=== PATIENT | female | born 2005 | race Caucasian/White ===

== ENCOUNTER 2024-04-25 20:34 | Emergency (ER) | payer OTHER, SELFPAY ==
[2024-04-25 20:38] VITALS: BP 117/66; PULSE 82; TEMP 37; O2SAT 100; BMI 26.6
--- NOTE | 2024-04-25 20:49 | ED_ITS ---
HPI - URI/Sore Throat General Chief Complaint: Upper Respiratory Infection Stated Complaint: SWOLLEN THROAT, SEVERE PAIN Time Seen by Provider: 04/25/24 20:44 Source: patient Limitations: no limitations History of Present Illness HPI Narrative: patient presents complaining of a sore throat. States she was seen earlier today at [facility]. states she was given dose of medication and then discharged. States her throat pain is worse. No fever. Not short of breath. No abdominal pain or nausea Related Data Allergies Allergy/AdvReac Type Severity Reaction Status Date / Time Penicillins AdvReac Mild Rash Verified 04/25/24 20:48 Review of Systems ROS Status of ROS 10 or more systems reviewed and unremark able except as noted in history and below Exam Constitutional Vital Signs, click to edit/add: Last Vital Signs Temp 98.6 F 04/25/24 20:38 Pulse 82 04/25/24 20:38 Resp 16 04/25/24 20:38 BP 117/66 04/25/24 20:38 Pulse Ox 100 04/25/24 20:58 O2 Del Method Room Air 04/25/24 20:58 Common normals: no apparent distress, average body habitus, oriented x3, no limitations, healthy appearing, alert and well nourished [facility] Common normals: normocephalic and head/scalp atraumatic Other: left tonsil inflamed. mild swelling. no exudate. neck supple. tender left anterior shotty nodes. neg stridor Eye Common normals: PERRL and EOMs intact bilaterally Respiratory Common normals: normal respiratory effort, no retractions, no use of accessory muscles and clear to auscultation bilaterally Cardio Common normals: regular rate, regular rhythm, S1 normal heart sound and S2 normal heart sound GI Common normals: Normal to inspection, nondistended, normoactive bowel sounds present, soft to palpation and non-tender Extremity Common normals: normal to inspection and full ROM Neuro Common normals: oriented x3, CN's II-XII intact bilaterally, moves all extremities and no focal motor deficits Psych Appearance: grossly normal Course Vital Signs Vital signs: Vital Signs Temperature 98.6 F 04/25/24 20:38 Pulse Rate 82 04/25/24 20:38 Respiratory Rate 16 04/25/24 20:38 Blood Pressure 117/66 04/25/24 20:38 Pulse Oximetry 100 04/25/24 20:38 Oxygen Delivery Method Room Air 04/25/24 20:38 Temperature 98.6 F 04/25/24 20:38 Pulse Rate 82 04/25/24 20:38 Respiratory Rate 16 04/25/24 20:38 Blood Pressure 117/66 04/25/24 20:38 Pulse Oximetry 100 04/25/24 20:58 Oxygen Delivery Method Room Air 04/25/24 20:58 MDM - URI/Sore Throat MDM Narrative Medical decision making narrative: patient seen earlier today at [facility]. Discharged home with diagnosis of pharyngitis. Presents with worsening pain. Exam with finding of inflammation of the left tonsil concerning for an early peritonsillar abscess. Cliniclly at this time it is focal tonsillitis. treated with clindamycin and discharged home to followup with her doctor Discharge Plan Discharge Stand Alone Forms: Portal Instructions Chief Complaint: Upper Respiratory Infection Clinical Impression: Acute tonsillitis Patient Disposition: Home, Self-Care Print Language: Green[place]ic Instructions: Tonsillitis (ED) Additional Instructions: follow up with your doctor next week for recheck Referrals: Physician,Non-Staff, MD [Primary Care Provider] - 1 week
[2024-04-25 20:58] VITALS: O2SAT 100
[2024-04-25] MEDS: CLINDAMYCIN HCL 150 MG CAPSULE 300 MG PO (21:41)
== END 2024-04-25 21:45 | disposition home or self-care (01) ==
PROVIDERS: Emergency Provider Internal Medicine
DX: J03.90 Acute tonsillitis, unspecified (principal)
CPT/HCPCS: 99283